=== PATIENT | female | born 1940 | race Caucasian/White ===

== ENCOUNTER 2023-08-15 14:44 | Inpatient (IN) | payer MEDICARE ==
[~2023-08-15] VITALS: Ht 157.5 cm; Wt 63.7 kg
[2023-08-15] MEDS ORDERED: CALC-393 PO (17:02)
[2023-08-15] MEDS ORDERED: MAGN100T5 PO (17:02)
[2023-08-15] MEDS ORDERED: ATOR20TA PO (17:02)
[2023-08-15] MEDS ORDERED: chondroitin PO (17:02)
[2023-08-15] MEDS ORDERED: ERGO400C PO (17:02)
[2023-08-15] MEDS ORDERED: ANAS1TAB10 PO (17:02)
[2023-08-15] MEDS ORDERED: ZINC220T3 PO (17:02)
[2023-08-15] MEDS ORDERED: LEVO88TA2 PO (17:02)
[2023-08-15] MEDS ORDERED: GLUC15006 PO (17:02)
[2023-08-15 19:21] LABS: BILIRUBIN,URINE NEGATIVE (Neg); CLARITY,URINE SLIGHTLY CLOUDY (Clear); COLOR,URINE YELLOW (Yellow); GLUCOSE, URINE NEGATIVE (Neg); KETONES,URINE 15 mg/dl (Neg); LEUKOCYTE ESTERASE ,URINE NEGATIVE (Neg); NITRITES, URINE NEGATIVE (Neg); OCCULT BLOOD,URINE NEGATIVE (Neg); PROTEIN,URINE NEGATIVE (Neg); UROBILINOGEN,URINE 0.2 E.U/dL (0.2-1.0)
[2023-08-15 19:27] LABS: UA COLLECTION TYPE CLN CATCH MIDSTREAM
[2023-08-15 19:29] LABS: MUCUS STRANDS FEW /LPF (Neg); TRANSITIONAL EPI CELLS,URINE FEW /HPF
[2023-08-15 19:31] LABS: BACTERIA,URINE FEW /HPF (Neg); SQUAMOUS EPITHELIAL CELL,UR MANY /LPF (FEW)
[2023-08-15 19:33] LABS: WBC,URINE 0-4 /HPF (0-4)
[2023-08-15 19:34] LABS: AMORPHOUS PHOSPHATES 1+; RBC,URINE 0-2 /HPF (0-2)
[2023-08-15 19:55] LABS: BASOPHILS % (AUTO) 0.3 % (0-1); EOSINOPHILS % (AUTO) 0.4 % (0-6); HEMATOCRIT 40.5 % (35.0-45.0); HEMOGLOBIN 13.4 g/dl (12.0-16.0); LYMPHOCYTES # (AUTO) 1.5 X10'3 (1.1-4.8); LYMPHOCYTES % (AUTO) 13.2 % (21-51); MEAN CORPUSCULAR HEMOGLOBIN 29.4 PG (27.0-31.0); MEAN CORPUSCULAR VOLUME 89.1 FL (78-98); MEAN PLATELET VOLUME 7.4 FL (7.4-10.4); MONOCYTES # (AUTO) 0.9 X10'3 (0-0.9); NEUTROPHILS # (AUTO) 9.2 X10'3 (1.8-7.7); NEUTROPHILS % (AUTO) 78.1 % (42-75); PLATELET COUNT 281 X10'3 (140-440); RED BLOOD COUNT 4.54 X10'6 (4.20-5.60); RED CELL DISTRIBUTION WIDTH 13.3 % (11.5-14.5); WHITE BLOOD COUNT 11.7 X10'3 (4.5-11.0)
[2023-08-15 20:02] LABS: ALANINE AMINOTRANSFERASE 32 U/L (12-78); ALBUMIN/GLOBULIN RATIO 0.7 (1.1-1.5); ALKALINE PHOSPHATASE 51 IU/L (46-116); ANION GAP 10 (8-16); ASPARTATE AMINO TRANSFERASE 17 U/L (10-37); BILIRUBIN,TOTAL 0.4 MG/DL (0.1-1.0); BLOOD UREA NITROGEN 13 MG/DL (7-18); BUN/CREATININE RATIO 15.1 (10.0-20.0); CALCIUM 8.6 MG/DL (8.5-10.1); CHLORIDE 102 MMOL/L (99-107); CREATINE KINASE 35 U/L (26-192); CREATININE 0.86 MG/DL (0.40-0.90); GLUCOSE 94 MG/DL (70-104); POTASSIUM 3.9 MMOL/L (3.5-5.1); SODIUM 137 MMOL/L (135-145); TOTAL CARBON DIOXIDE 24.7 MMOL/L (24-32); TOTAL PROTEIN 7.3 G/DL (6.4-8.2); eCRCL 41 ML/MIN; eGFR 63 ML/MIN
[2023-08-15] MEDS ORDERED: ondansetron/PF 4mg/2ml inj IV PRN (21:10)
[2023-08-15] MEDS ORDERED: potassium Cl 40MEQ/1/2NS 520ml 520 ML IV PRN (21:10)
[2023-08-15] MEDS ORDERED: magnesium Cl slow-release 64mg tablet PO PRN (21:10)
[2023-08-15] MEDS ORDERED: magnesium 4gm in 100ml NS 100 ML IV PRN (21:10)
[2023-08-15] MEDS: normal saline 1000ml 1,000 ML IV SCH (21:10)
[2023-08-15] MEDS ORDERED: magnesium 2GM in 50ml NS 50 ML IV PRN (21:10)
[2023-08-15] MEDS ORDERED: potassium Cl 20 mEq SR tablet PO PRN ×2 (21:10)
[2023-08-15] MEDS: normal saline 500ml IV soln 500 ML IV ONE (21:15)
[2023-08-15] MEDS: acetaminophen 325mg tablet PO PRN (22:34)
[2023-08-15 23:27] VITALS: BP 127/71; PULSE 74; RESP 16; TEMP 99; O2SAT 94
[2023-08-16 06:00] VITALS: BP 128/58; PULSE 61; RESP 17; TEMP 99.4; O2SAT 94
[2023-08-16 06:47] LABS: BASOPHILS # (AUTO) 0.1 X10'3 (0-0.2); BASOPHILS % (AUTO) 0.8 % (0-1); EOSINOPHILS % (AUTO) 0.4 % (0-6); HEMATOCRIT 43.3 % (35.0-45.0); HEMOGLOBIN 14.4 g/dl (12.0-16.0); LYMPHOCYTES # (AUTO) 2.3 X10'3 (1.1-4.8); LYMPHOCYTES % (AUTO) 20.5 % (21-51); MEAN CORPUSCULAR HEMOGLOBIN 29.4 PG (27.0-31.0); MEAN CORPUSCULAR HGB CONC 33.2 g/dL (33.0-36.5); MEAN CORPUSCULAR VOLUME 88.5 FL (78-98); MEAN PLATELET VOLUME 7.4 FL (7.4-10.4); MONOCYTES % (AUTO) 8.8 % (2-12); NEUTROPHILS # (AUTO) 7.7 X10'3 (1.8-7.7); NEUTROPHILS % (AUTO) 69.5 % (42-75); PLATELET COUNT 286 X10'3 (140-440); RED BLOOD COUNT 4.89 X10'6 (4.20-5.60); RED CELL DISTRIBUTION WIDTH 13.4 % (11.5-14.5); WHITE BLOOD COUNT 11.1 X10'3 (4.5-11.0)
[2023-08-16] MEDS: anastrozole 1 MG tablet PO SCH (07:27)
[2023-08-16] MEDS: atorvastatin 20mg tablet PO SCH (07:27)
[2023-08-16] MEDS: levoTHYROXINE 88mcg tablet PO SCH (07:27)
[2023-08-16] MEDS: enoxaparin 40mg/0.4ml syringe SUBCUT SCH (07:28)
[2023-08-16] MEDS: zinc sulfate 220mg capsule PO SCH (07:28)
[2023-08-16] MEDS: cholecalciferol (vitamin D3) 400 unit (10mcg) tablet PO SCH (07:28)
[2023-08-16 07:30] VITALS: RESP 16
[2023-08-16] MEDS: calcium carbonate/vitamin D3 tablet PO SCH (07:30)
[2023-08-16 07:33] LABS: ALBUMIN 3.1 G/DL (3.4-5.0); ANION GAP 13 (8-16); BLOOD UREA NITROGEN 15 MG/DL (7-18); CALCIUM 8.8 MG/DL (8.5-10.1); CHLORIDE 104 MMOL/L (99-107); CREATININE 0.75 MG/DL (0.40-0.90); GLUCOSE 90 MG/DL (70-104); MAGNESIUM 2.4 MG/DL (1.5-2.4); POTASSIUM 3.8 MMOL/L (3.5-5.1); SODIUM 137 MMOL/L (135-145); THYROID STIMULATING HORMONE 0.03 ulU/ml (0.34-4.50); TOTAL CARBON DIOXIDE 20.1 MMOL/L (24-32); eCRCL 47 ML/MIN; eGFR 74 ML/MIN
[2023-08-16] MEDS: CHONDROITIN PO SCH (07:56)
[2023-08-16] MEDS: GLUCOSAMINE 1500 MG PO SCH (07:56)
[2023-08-16] MEDS: MAGNESIUM AMINO ACID CHELATE PO SCH (07:56)
[2023-08-16] MEDS: K and/or MAG REPLACEMENT MC SCH (08:00)
[2023-08-16 10:44] VITALS: BP 107/57; PULSE 67; RESP 14; TEMP 98.8; O2SAT 96
[2023-08-16 18:00] VITALS: BP 133/62; PULSE 50; RESP 18; TEMP 96.2; O2SAT 97
[2023-08-16] MEDS: lactose-reduced food (Ensure Enlive) - 237ml bottle PO SCH (18:36)
[2023-08-16] MEDS: dronabinol 2.5mg capsule PO SCH (19:54)
[2023-08-16 20:00] VITALS: RESP 16
[2023-08-16] MEDS ORDERED: magnesium sulf-water 2g/50mL 50 ML IV PRN (20:10)
[2023-08-16] MEDS ORDERED: magnesium sulf-water 4G/100mL 100 ML IV PRN (20:10)
[2023-08-16] MEDS: nystatin 500,000 unit/5ML UD oral suspension PO SCH (21:00)
[2023-08-16 22:00] VITALS: BP 139/55; PULSE 53; RESP 16; TEMP 98; O2SAT 98
[2023-08-17 06:00] VITALS: BP 92/59; PULSE 55; RESP 16; TEMP 97.6; O2SAT 94
[2023-08-17 06:39] LABS: BASOPHILS # (AUTO) 0.1 X10'3 (0-0.2); BASOPHILS % (AUTO) 0.6 % (0-1); EOSINOPHILS # (AUTO) 0.1 X10'3 (0-0.9); EOSINOPHILS % (AUTO) 0.6 % (0-6); LYMPHOCYTES # (AUTO) 3.5 X10'3 (1.1-4.8); LYMPHOCYTES % (AUTO) 25.9 % (21-51); MEAN CORPUSCULAR HEMOGLOBIN 29.8 PG (27.0-31.0); MEAN CORPUSCULAR HGB CONC 33.2 g/dL (33.0-36.5); MEAN CORPUSCULAR VOLUME 89.6 FL (78-98); MEAN PLATELET VOLUME 7.6 FL (7.4-10.4); MONOCYTES # (AUTO) 1.5 X10'3 (0-0.9); MONOCYTES % (AUTO) 11.4 % (2-12); NEUTROPHILS # (AUTO) 8.2 X10'3 (1.8-7.7); NEUTROPHILS % (AUTO) 61.5 % (42-75); PLATELET COUNT 250 X10'3 (140-440); RED BLOOD COUNT 4.69 X10'6 (4.20-5.60); RED CELL DISTRIBUTION WIDTH 13.3 % (11.5-14.5); WHITE BLOOD COUNT 13.4 X10'3 (4.5-11.0)
[2023-08-17 06:50] LABS: ALBUMIN 2.9 G/DL (3.4-5.0); ANION GAP 9 (8-16); BLOOD UREA NITROGEN 16 MG/DL (7-18); BUN/CREATININE RATIO 21.3 (10.0-20.0); CALCIUM 8.4 MG/DL (8.5-10.1); CHLORIDE 103 MMOL/L (99-107); CREATININE 0.75 MG/DL (0.40-0.90); GLUCOSE 106 MG/DL (70-104); MAGNESIUM 2.3 MG/DL (1.5-2.4); POTASSIUM 3.9 MMOL/L (3.5-5.1); SODIUM 132 MMOL/L (135-145); eCRCL 47 ML/MIN; eGFR 74 ML/MIN
[2023-08-17 08:00] VITALS: RESP 16
[2023-08-17 10:00] VITALS: BP 90/54; PULSE 53; RESP 16; TEMP 98.7; O2SAT 94
[2023-08-17] MEDS: acetaminophen 325mg tablet PO PRN (15:11)
[2023-08-17] MEDS: albumin (Human) 5% 250ml 250 ML IV ONE (16:04)
[2023-08-17 16:14] LABS: PHOSPHORUS 2.6 MG/DL (2.3-4.5); PRO BRAIN NATRIURETIC PEPTIDE 1037 PG/ML (0-450)
[2023-08-17 22:00] VITALS: BP 121/52; PULSE 70; RESP 16; TEMP 98; O2SAT 98
[2023-08-18 06:00] VITALS: BP 133/56; PULSE 66; RESP 15; TEMP 98.4; O2SAT 98
[2023-08-18 11:00] VITALS: BP_SYST 114; BP_SYST 128; BP_DIAS 52; BP_DIAS 64; PULSE 52; RESP 18; TEMP 98.4; O2SAT 100; O2SAT 97
[2023-08-18 18:00] VITALS: BP 121/43; PULSE 53; RESP 18; TEMP 98.2; O2SAT 97
[2023-08-18 20:00] VITALS: RESP 16; O2SAT 94
[2023-08-18 22:00] VITALS: BP 129/59; PULSE 44; RESP 16; TEMP 97.7; O2SAT 94
[2023-08-19 05:27] LABS: BASOPHILS # (AUTO) 0.1 X10'3 (0-0.2); BASOPHILS % (AUTO) 0.7 % (0-1); EOSINOPHILS # (AUTO) 0.2 X10'3 (0-0.9); EOSINOPHILS % (AUTO) 1.9 % (0-6); HEMATOCRIT 35.9 % (35.0-45.0); HEMOGLOBIN 12.1 g/dl (12.0-16.0); LYMPHOCYTES % (AUTO) 22.5 % (21-51); MEAN CORPUSCULAR HEMOGLOBIN 29.8 PG (27.0-31.0); MEAN CORPUSCULAR HGB CONC 33.8 g/dL (33.0-36.5); MEAN CORPUSCULAR VOLUME 88.1 FL (78-98); MONOCYTES # (AUTO) 0.8 X10'3 (0-0.9); MONOCYTES % (AUTO) 8.7 % (2-12); NEUTROPHILS % (AUTO) 66.2 % (42-75); PLATELET COUNT 227 X10'3 (140-440); RED BLOOD COUNT 4.07 X10'6 (4.20-5.60); RED CELL DISTRIBUTION WIDTH 13.4 % (11.5-14.5)
[2023-08-19 05:38] LABS: ALBUMIN 2.4 G/DL (3.4-5.0); ANION GAP 9 (8-16); BLOOD UREA NITROGEN 15 MG/DL (7-18); BUN/CREATININE RATIO 23.1 (10.0-20.0); CALCIUM 8.1 MG/DL (8.5-10.1); CHLORIDE 105 MMOL/L (99-107); CREATININE 0.65 MG/DL (0.40-0.90); GLUCOSE 123 MG/DL (70-104); MAGNESIUM 2.1 MG/DL (1.5-2.4); SODIUM 134 MMOL/L (135-145); TOTAL CARBON DIOXIDE 19.9 MMOL/L (24-32); eCRCL 55 ML/MIN; eGFR 88 ML/MIN
[2023-08-19 05:39] LABS: POTASSIUM 3.7 MMOL/L (3.5-5.1)
[2023-08-19 06:00] VITALS: BP 151/56; PULSE 47; RESP 17; TEMP 98; O2SAT 99
[2023-08-19 10:00] VITALS: BP 120/55; PULSE 67; RESP 15; TEMP 100.2; O2SAT 98
== END 2023-08-19 15:00 | DRG 641 ==
LOC: ER 14:47 → ED HOLD 21:13 → ORTHO 4S 23:10
PROVIDERS: ADMIT Surgery Surgical Critical Care; ATTEND Internal Medicine
DX: E86.0 Dehydration (principal); E44.0 Moderate protein-calorie malnutrition; R62.7 Adult failure to thrive; M81.0 Age-related osteoporosis without current pathological fracture; E86.1 Hypovolemia; Z20.822 Contact with and (suspected) exposure to COVID-19; I95.9 Hypotension, unspecified; M54.50 Low back pain, unspecified; E03.9 Hypothyroidism, unspecified; E11.9 Type 2 diabetes mellitus without complications; E78.5 Hyperlipidemia, unspecified; W18.30XA Fall on same level, unspecified, initial encounter; Z85.3 Personal history of malignant neoplasm of breast; Z86.73 Personal history of transient ischemic attack (TIA), and cerebral infarction without residual deficits; Z68.25 Body mass index [BMI] 25.0-25.9, adult
CPT/HCPCS: 36415; 70450; 71045; 71250; 72100; 74176; 80048; 80053; 81001; 82550; 82948; 83036; 83605; 83735; 83880; 84100; 84145; 84443; 85025; 87040; 87081; 87088; 87811; 93005; 93306; 97161; 97530; 97535; 99285; A4615; G0378; J1650; J7030; J7040; P9045; Q0167

== ENCOUNTER 2023-08-22 02:32 | Emergency (ER) | payer MEDICARE ==
[~2023-08-22] VITALS: Ht 157.5 cm; Wt 63.6 kg
[~2023-08-22 02:32] MED LIST: ANAS1TAB10 PO; ATOR20TA PO; CALC-393 PO; ERGO400C PO; GLUC15006 PO; LEVO88TA2 PO; MAGN100T5 PO; ZINC220T3 PO; chondroitin PO
[2023-08-22 03:27] LABS: BASOPHILS # (AUTO) 0.1 X10'3 (0-0.2); BASOPHILS % (AUTO) 0.4 % (0-1); EOSINOPHILS # (AUTO) 0.1 X10'3 (0-0.9); EOSINOPHILS % (AUTO) 0.9 % (0-6); HEMATOCRIT 39.8 % (35.0-45.0); LYMPHOCYTES # (AUTO) 1.6 X10'3 (1.1-4.8); LYMPHOCYTES % (AUTO) 11.8 % (21-51); MEAN CORPUSCULAR HEMOGLOBIN 29.1 PG (27.0-31.0); MEAN CORPUSCULAR HGB CONC 32.8 g/dL (33.0-36.5); MEAN CORPUSCULAR VOLUME 88.6 FL (78-98); MEAN PLATELET VOLUME 8.6 FL (7.4-10.4); MONOCYTES # (AUTO) 0.7 X10'3 (0-0.9); MONOCYTES % (AUTO) 5.5 % (2-12); NEUTROPHILS # (AUTO) 10.8 X10'3 (1.8-7.7); NEUTROPHILS % (AUTO) 81.4 % (42-75); PLATELET COUNT 294 X10'3 (140-440); RED BLOOD COUNT 4.49 X10'6 (4.20-5.60); RED CELL DISTRIBUTION WIDTH 13.7 % (11.5-14.5); WHITE BLOOD COUNT 13.2 X10'3 (4.5-11.0)
[2023-08-22 03:58] LABS: ALBUMIN 2.7 G/DL (3.4-5.0); ANION GAP 12 (8-16); BLOOD UREA NITROGEN 18 MG/DL (7-18); BUN/CREATININE RATIO 22.2 (10.0-20.0); CHLORIDE 103 MMOL/L (99-107); CREATININE 0.81 MG/DL (0.40-0.90); GLUCOSE 130 MG/DL (70-104); POTASSIUM 3.4 MMOL/L (3.5-5.1); SODIUM 139 MMOL/L (135-145); TOTAL CARBON DIOXIDE 24.1 MMOL/L (24-32); eCRCL 44 ML/MIN; eGFR 68 ML/MIN
[2023-08-22 05:48] LABS: MAGNESIUM 2.3 MG/DL (1.5-2.4)
[2023-08-22] MEDS: LIDOcaine 1% W/epiNEPHrine 1:100,000 20ml vial IJ ONE (05:51)
[2023-08-22] MEDS: potassium CL 10mEq/100ml bag 100 ML IV ONE (05:55)
[2023-08-22] MEDS: potassium Cl 20 mEq SR tablet PO STA (05:57)
[2023-08-22] MEDS: magnesium oxide 400mg tablet PO ONE (05:57)
[2023-08-22 07:57] VITALS: BP 130/61; PULSE 52; RESP 15; TEMP 98.4; O2SAT 95
== END 2023-08-22 09:40 | disposition home or self-care (01) ==
LOC: ER 02:32
DX: S01.01XA Laceration without foreign body of scalp, initial encounter (principal); E87.6 Hypokalemia; W19.XXXA Unspecified fall, initial encounter; Y93.89 Activity, other specified; Y92.89 Other specified places as the place of occurrence of the external cause; Y99.8 Other external cause status
CPT/HCPCS: 12002; 36415; 70450; 72125; 80048; 83735; 85025; 99285